=== PATIENT | female | born 2000 | race Two or more races ===

== ENCOUNTER → 2022-06-05 | Emergency (ER) | payer OTHER ==
[~2022-06-05] VITALS: Ht 180.3 cm; Wt 81.6 kg
== END | disposition home or self-care (01) ==
LOC: ER 14:04
DX: T24.212A Burn of second degree of left thigh, initial encounter (principal); X10.0XXA Contact with hot drinks, initial encounter; Y93.89 Activity, other specified; Y92.89 Other specified places as the place of occurrence of the external cause; Y99.8 Other external cause status